=== PATIENT | male | born 1960 | race Caucasian/White ===

== ENCOUNTER 2024-11-19 12:09 | Emergency (ER) | payer MEDICAID ==
[~2024-11-19] VITALS: Ht 170.2 cm; Wt 75.0 kg
[2024-11-19 12:16] VITALS: O2SAT 95
[2024-11-19] MEDS ORDERED: AMOX600S39 MT (14:10)
[2024-11-19] MEDS: IBUPROFEN 400MG TABLET PO ONE (14:39)
[2024-11-19] MEDS: TETANUS, DIPHTHERIA, PERTUSSIS VAC/PF 0.5ML (>10YR OLD) IM ONE (14:41)
[2024-11-19 14:43] VITALS: BP 183/91; PULSE 76; RESP 16; TEMP 36.9; O2SAT 95
== END 2024-11-19 14:43 | disposition home or self-care (01) ==
LOC: ER 12:09
DX: M79.641 Pain in right hand (principal); I10 Essential (primary) hypertension; E11.9 Type 2 diabetes mellitus without complications; W54.0XXA Bitten by dog, initial encounter; Y93.89 Activity, other specified; Y92.89 Other specified places as the place of occurrence of the external cause; Y99.8 Other external cause status
CPT/HCPCS: 73120; 90715; 90471; 99283; Z7610; A4606